=== PATIENT | female | born 1955 | race Caucasian/White ===

== ENCOUNTER 2016-09-29 11:24 | Emergency (ER) | payer OTHER ==
[2016-09-29] MEDS ORDERED: LETS SOLN TOPICAL 1 EA SYR TP ONE ×3 (11:56→12:01)
[2016-09-29] MEDS ORDERED: TDAP ADULT 0.5 ML INJ (BOOSTRIX) IM ONE (12:01)
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
[2016-09-29] MEDS ORDERED: IBUPROFEN 600 MG TAB PO ONE (13:28)
[2016-09-29 14:10] VITALS: BP 138/74; PULSE 78; RESP 16; TEMP 97.7; O2SAT 96
== END 2016-09-29 14:10 | disposition home or self-care (01) ==
PROC: 0HQ1XZZ Repair Face Skin, External Approach (ICD-10-PCS; principal; 2016-09-29)
PROC: 3E0234Z Introduction of Serum, Toxoid and Vaccine into Muscle, Percutaneous Approach (ICD-10-PCS; principal; 2016-09-29)
DX: S01.81XA Laceration without foreign body of other part of head, initial encounter (principal); S52.125A Nondisplaced fracture of head of left radius, initial encounter for closed fracture; S80.211A Abrasion, right knee, initial encounter; S80.212A Abrasion, left knee, initial encounter; S60.511A Abrasion of right hand, initial encounter; S60.512A Abrasion of left hand, initial encounter; Z23 Encounter for immunization; W01.0XXA Fall on same level from slipping, tripping and stumbling without subsequent striking against object, initial encounter

== ENCOUNTER 2017-08-19 10:45 | Day surgery (SDC) | payer OTHER ==
[2017-08-19] MEDS ORDERED: NS 500 ML IV ONE (11:06)
[2017-08-19] MEDS ORDERED: LIDOCAINE 1% 2 ML INJ ID PRN (11:06)
[2017-08-19 11:19] VITALS: PULSE 62; TEMP 98.1
[2017-08-19] MEDS ORDERED: fentaNYL 100 MCG/2 ML INJ ONE (11:56)
[2017-08-19] MEDS ORDERED: MIDAZOLAM 2 MG/2 ML VIAL ONE ×2 (11:57→12:35)
--- NOTE | 2017-08-19 12:02 | PDGENHP ---
History & Physical Chief Complaint: phx polyps History of Present Illness: piecememeal removal large sessile polyp Pertinent Past, Social, Family History: no tobacco. alcohol 7/week. fhx - brother polyps, aunt of cc Relevant Physical Exam: a+Ox3. CTA. S1S2, RRR. +BS, soft nt Cardiorespiratory Assessment: class 1
--- NOTE | 2017-08-19 12:11 | PDPROPOC ---
Sedation Plan of Care Sedation Plan of Care: mental status noted, patient educated of risks, benefits , alternatives, patient can tolerate sedation ASA Classification: ASA 1 Planned drugs: fentanyl, midazolam Mallampati Score: Class 1 Mallampati Reference Image: Patient passed 3-3-2 rule?: Yes
[2017-08-19] MEDS ORDERED: fentaNYL 100 MCG/2 ML INJ IVP ONE (13:07)
[2017-08-19] MEDS ORDERED: MIDAZOLAM 2 MG/2 ML VIAL IVP ONE (13:07)
--- NOTE | 2017-08-19 13:10 | GIREPORT ---
[facility] Surgical Services - Endoscopy Department Patient Name: Xi Reyes Procedure Date: 08/19/2017 12:02 PM Patient Type: Outpatient Attending MD/ ER Physician: Sandra Marmolejo Procedure: Colonoscopy Indications: Surveillance: Piecemeal removal of large sessile adenoma last colonosco py (< 3 yrs) Providers: Rex Cui MD Referring MD: Valdez Pal MD, [facility] Medicines: Fentanyl 100 micrograms IV, Midazolam 7 mg IV Complications: No immediate complications. Estimated blood loss: Minimal. Description of Procedure: After obtaining informed consent, the scope was passed under direct vis ion. Throughout the procedure, the patient's blood pressure, pulse, and oxyg en saturations were monitored continuously. The Colonoscope with irrigatio n channel was introduced through the anus and advanced to the terminal il eum, with identification of the appendiceal orifice and IC valve. The colono scopy was performed without difficulty. The patient tolerated the procedure w ell. The quality of the bowel preparation was good. Findings: The digital rectal exam findings include non-thrombosed external hemorr hoids. The terminal ileum appeared normal. A post polypectomy scar was found in the proximal transverse colon. The re was residual polyp tissue. The polyp was removed with a hot snare. Poly p resection was incomplete. The resected tissue was retrieved. Estimated blood loss was minimal. Fulguration to ablate the lesion remnants by argon pl asma was successful. Estimated blood loss: none. Area was tattooed with an injection of 3 mL of Lili ink. Internal hemorrhoids were found during retroflexion. The exam was otherwise without abnormality. Estimated Blood Loss: Estimated blood loss was minimal. Post Op Diagnosis: - Non-thrombosed external hemorrhoids found on digital rectal exam. - The examined portion of the ileum was normal. - Post-polypectomy scar in the proximal transverse colon. Treated with argon plasma coagulation (APC). Tattooed. - The examination was otherwise normal. Recommendation: - Await pathology results. - My office will call with the pathology result with 5-7 days. If you h ave not heard from my office by 1214, do not assume the pathology is valeri l, please call [phone] to get the pathology reults. - Repeat colonoscopy in 1 year for surveillance. - Resume previous diet. - Avoid Aspirin and NSAID's for 7-10 days except as used for cardic or stroke prevention. - Patient has a contact number available for emergencies. The signs and symptoms of potential delayed complications were discussed with the pat ient. Return to normal activities tomorrow. Written discharge instructions we re provided to the patient. - Continue present medications. - Discharge patient to home (ambulatory). - Return to primary care physician as previously scheduled. - Thank you for allowing me to help in your patient's care. Do not hesi levin to call with any questions. Attending Participation: I personally performed the entire procedure. Basilia Goodman M.D Rex Cui MD 08/19/2017 1:10:24 PM This report has been signed electronicallyMathew MD Basilia Number of Addenda: 0 Note Initiated On: 08/19/2017 12:02 PM Total Procedure Duration Time 0 hours 34 minutes 37 seconds [email or web address]
[2017-08-19 16:30] VITALS: BP 102/74; O2SAT 92
[2017-08-19 16:33] VITALS: RESP 16
== END 2017-08-19 15:10 | disposition home or self-care (01) ==
LOC: FSGY 10:45
PROVIDERS: ATTEND Internal Medicine Gastroenterology
PROC: 0DBL8ZX Excision of Transverse Colon, Via Natural or Artificial Opening Endoscopic, Diagnostic (ICD-10-PCS; principal; 2017-08-19 12:15)
PROC: 0DJD8ZZ Inspection of Lower Intestinal Tract, Via Natural or Artificial Opening Endoscopic (ICD-10-PCS; principal; 2017-08-19 12:15)
PROC: 3E0H8KZ Introduction of Other Diagnostic Substance into Lower GI, Via Natural or Artificial Opening Endoscopic (ICD-10-PCS; principal; 2017-08-19 12:15)
DX: Z12.11 Encounter for screening for malignant neoplasm of colon (principal); Z86.010 Personal history of colon polyps; K64.5 Perianal venous thrombosis
CPT/HCPCS: J2250; J3010